=== PATIENT | female | born 1935 | race Caucasian/White ===

== ENCOUNTER 2023-08-02 18:12 | Emergency (ER) | payer OTHER ==
[2023-08-02 19:45] LABS: Specific Gravity < 1.005 (1.005-1.030); Sqamous Epithelial <5 /HPF (None Seen); Urine Bacteria 20-50 /HPF (<20); Urine Bilirubin NEGATIVE (Negative); Urine Blood 3+ (Negative); Urine Clarity Extremely Turbid (Clear); Urine Color Colorless (Yellow); Urine Culture Reflex Order REFLEXED; Urine Glucose NEGATIVE (Negative); Urine Ketones NEGATIVE (Negative); Urine Micro Reflex YN NO BILL MICROSCOPIC; Urine Mucus Slight /HPF (None Seen); Urine Nitrite NEGATIVE (Negative); Urine Protein NEGATIVE (Negative); Urine Urobilinogen Normal (Normal); Urine pH 5.5 (5.0-7.0)
--- NOTE | 2023-08-02 19:59 | EDPHYS ---
Physician Documentation [facility] Name: Divina Carbajal Age: 88 yrs Sex: Female : 1935 Arrival Date: 08/02/2023 Time: 18:12 Bed IW1 Private MD: ED Physician Tobias Varghese HPI: 08/01 18:50 This 88 yrs old Female presents to ER via Wheelchair with complaints of ec2 Urinating blood. 18:50 Patient arrives today due to concern for hematuria. Patient reportedly having ec2 blood-tinged urine. No abdominal pain, no fevers or chills, nausea or vomiting. No blood thinners.. Historical: - Allergies: 18:46 No Known Allergies; hb - Home Meds: 18:46 levothyroxine oral [Active]; atorvastatin oral [Active]; amlodipine 10 mg tablet hb [Active]; Metoprolol Tartrate Oral [Active]; - PMHx: 18:46 Hypothyroidism; Hypertension; hb - PSHx: 18:46 None; hb - Immunization history:: Adult Immunizations up to date. - Infectious Disease History:: Denies. - Social history:: Smoking status: Patient denies any tobacco usage or history of. ROS: 18:50 Constitutional: as per hpi ec2 Exam: 18:50 Constitutional: GEN: NAD Head: atraumatic Eyes: EOMI Ears: External ears are ec2 normal. CV: regular rate LUNGS: no respiratory distress ABD: non-distended, soft, nontender, not guarding, not rigid SKIN: no evidence of rashes MSK: no evidence of trauma NEURO: moves all extremities equally Vital Signs: 18:45 BP 137 / 100; Pulse 80; Resp 16; Temp 98.1(TE); Pulse Ox 97% on R/A; Weight 65.77 kg; hb Height 5 ft. 4 in. ; Pain 2/10; 20:17 BP 133 / 95; Pulse 81; Resp 17 S; Temp 97.9; Pulse Ox 97% on R/A; ha1 18:45 Body Mass Index 24.89 (65.77 kg, 162.56 cm) hb 18:45 Pain Scale: Adult hb MDM: 18:49 Patient medically screened. ec2 18:50 Data reviewed: vital signs. ED course: Patient arrives today for evaluation of ec2 hematuria. Examination remarkable for well-appearing nontoxic dividual is otherwise in no acute stress with a reassuring examination. Will obtain UA to evaluate for UTI. Considered UTI, doubt kidney stone given lack of abdominal pain or flank pain. Additionally possible bladder mass, possible kidney mass. Patient to follow-up outpatient for further hematuria workup and will currently defer any lab work such as CBC or BMP or CT imaging . 19:58 ED course: Urine infectious appearing. Will start the patient on antibiotics and ec2 discharged home with follow-up with PCP. Return precautions given.. 04 18:49 Order name: UAM; Complete Time: 19:58 ec2 08/01 19:49 Order name: Urine Culture EDMS Administered Medications: No medications were administered Disposition Summary: 08/02/23 19:58 Discharge Ordered Notes: Location: Home ec2 Condition: Stable ec2 Diagnosis - UTI/ Urinary tract infection, site not specified ec2 Followup: ec2 - With: Private Physician - When: - Reason: Re-evaluation by your physician Discharge Instructions: - Discharge Summary Sheet ec2 Forms: - Medication Reconciliation Form ec2 - Thank You Letter ec2 - Antibiotic Education ec2 - Prescription Opioid Use ec2 - Patient Portal Instructions ec2 - Leadership Thank You Letter ec2 Prescriptions: - Cephalexin 500 mg Oral capsule - take 1 capsule ORAL route every 12 hours for 5 days; 10 capsule; Refills: 0, ec2 Product Selection Permitted Signatures: Dispatcher [employer] Dory Gutierrez RN RN Tobias Varghese MD MD ec2 Corrections: (The following items were deleted from the chart) 18:49 18:49 Urinalysis W/Microscopic+U.LAB.BRZ ordered. MONAE LICONA
--- NOTE | 2023-08-02 19:59 | ER ---
Nurse's Notes [facility] Name: Divina Carbajal Age: 88 yrs Sex: Female : 1935 Arrival Date: 08/02/2023 Time: 18:12 Bed IW1 Private MD: Diagnosis: UTI/ Urinary tract infection, site not specified Presentation: 08/01 18:45 Chief complaint: Blood in urine and dysuria this afternoon. Coronavirus screen: At this hb time, the client does not indicate any symptoms associated with coronavirus-19. Ebola Screen: No symptoms or risks identified at this time. Initial Sepsis Screen: Does the patient meet any 2 criteria? No. Patient's initial sepsis screen is negative. Does the patient have a suspected source of infection? No. Patient's initial sepsis screen is negative. Risk Assessment: Do you want to hurt yourself or someone else? Patient reports no desire to harm self or others. Onset of symptoms was August 02, 2023. 18:45 Method Of Arrival: Wheelchair hb 18:45 Acuity: ARIELLE 4 hb Triage Assessment: 18:46 General: Appears in no apparent distress. Behavior is calm, cooperative. Pain: Denies hb pain. Neuro: Level of Consciousness is awake, alert, obeys commands, Oriented to person, place, time, situation. Cardiovascular: Patient's skin is warm and dry. Respiratory: Respiratory effort is even, unlabored, Respiratory pattern is regular, symmetrical. : Reports blood in urine, dysuria. Historical: - Allergies: 18:46 No Known Allergies; hb - Home Meds: 18:46 levothyroxine oral [Active]; atorvastatin oral [Active]; amlodipine 10 mg tablet hb [Active]; Metoprolol Tartrate Oral [Active]; - PMHx: 18:46 Hypothyroidism; Hypertension; hb - PSHx: 18:46 None; hb - Immunization history:: Adult Immunizations up to date. - Infectious Disease History:: Denies. - Social history:: Smoking status: Patient denies any tobacco usage or history of. Screenin:16 [facility] ED Fall Risk Assessment (Adult) History of falling in the last 3 months, ha1 including since admission Yes- single mechanical fall (1 pt) Confusion or Disorientation No (0 pts) Intoxicated or Sedated No (0 pts) Impaired Gait Yes (1 pt) Mobility Assist Device Used Yes (1 pt) Altered Elimination No (0 pt) Score/Fall Risk Level 3 or more points = High Risk Oriented to surroundings, Maintained a safe environment, Educated pt \T\ family on fall prevention, incl call for assistance when getting out of bed, Hourly rounding (assess needs \T\ fall precautionary measures) done. Abuse screen: Denies threats or abuse. Denies injuries from another. Nutritional screening: No deficits noted. Tuberculosis screening: No symptoms or risk factors identified. Assessment: 20:15 Reassessment: Patient and/or family updated on plan of care and expected duration. Pain ha1 level reassessed. Patient is alert, oriented x 3, equal unlabored respirations, skin warm/dry/pink. Vital Signs: 18:45 BP 137 / 100; Pulse 80; Resp 16; Temp 98.1(TE); Pulse Ox 97% on R/A; Weight 65.77 kg; hb Height 5 ft. 4 in. ; Pain 2/10; 20:17 BP 133 / 95; Pulse 81; Resp 17 S; Temp 97.9; Pulse Ox 97% on R/A; ha1 18:45 Body Mass Index 24.89 (65.77 kg, 162.56 cm) hb 18:45 Pain Scale: Adult hb ED Course: 18:16 Patient arrived in ED. im 18:20 Tobias Varghese MD is Attending Physician. ec2 18:46 Triage completed. hb 18:46 Arm band placed on. hb 19:12 UAM Sent. as6 19:12 Urine collected: clean catch specimen. as6 20:16 Patient has correct armband on for positive identification. Provided Education on: ha1 medication administration . 20:16 No provider procedures requiring assistance completed. Patient did not have IV access ha1 during this emergency room visit. Administered Medications: No medications were administered Medication: 20:17 VIS not applicable for this client. ha1 Outcome: 19:58 Discharge ordered by . ec2 20:16 Discharged to home via wheelchair, with family, ha1 20:16 Condition: stable 20:16 Discharge instructions given to patient, family, Instructed on discharge instructions, follow up and referral plans. medication usage, Demonstrated understanding of instructions, follow-up care, medications, Prescriptions given X 1, 20:17 Patient left the ED. ha1 Signatures: Dory Sher RN RN hb Remy Miles, RN RN as6 Andressa Pacheco, RN RN ha1 Dania Worthington Edwin, MD MD ec2
[2023-08-02 21:32] VITALS: BP 133/95; TEMP 97.9; O2SAT 97
== END 2023-08-02 20:17 | disposition home or self-care (01) ==
LOC: ER 18:12
DX: N39.0 Urinary tract infection, site not specified (principal); I10 Essential (primary) hypertension; E03.9 Hypothyroidism, unspecified
CPT/HCPCS: 81001; 87086; 87088; 99283